=== PATIENT | female | born 1990 | race Hispanic/Latino ===

== ENCOUNTER 2023-11-29 09:13 | Outpatient (CLI) | payer BC | END 2023-11-29 09:14 | disposition home or self-care (01) | LOC: CSHULT 09:13 | PROVIDERS: ATTEND Advanced Practice Midwife | DX: O44.42 Low lying placenta NOS or without hemorrhage, second trimester (principal); Z3A.19 19 weeks gestation of pregnancy | CPT/HCPCS: 76805 ==

== ENCOUNTER 2024-02-18 18:51 | Day surgery (SDC) | payer BC ==
[2024-02-18 19:17] VITALS: BMI 41.0
[2024-02-18] MEDS ORDERED: hydrALAZINE 20 MG/ML VIAL SLOW IVP PRN (19:26)
[2024-02-18] MEDS ORDERED: Promethazine HCl 25 MG/ML VIAL IM PRN (19:54)
[2024-02-18] MEDS ORDERED: Ondansetron PF 4 MG/2 ML Vial IVP PRN (19:54)
[2024-02-18] MEDS ORDERED: Acetaminophen 500 MG TAB PO PRN (19:54)
[2024-02-18] MEDS ORDERED: Oxytocin 30 units/NS 500 ML 500 ML IV SCH (20:00)
[2024-02-18] MEDS ORDERED: Lactated Ringer's 1,000 ML IV SCH (20:00)
[2024-02-18] MEDS: Cyclobenzaprine 10 MG TAB PO SCH (20:42)
[2024-02-18] MEDS: Acetaminophen 500 MG TAB PO SCH (20:42)
[2024-02-18] MEDS: metroNIDAZOLE 500 MG TAB PO SCH (22:37)
[2024-02-19] MEDS ORDERED: metroNIDAZOLE 500 MG TAB PO SCH (09:00)
== END 2024-02-18 23:50 | disposition home or self-care (01) ==
LOC: CSHLD/OP 18:51
PROVIDERS: ATTEND Family Medicine
DX: O9A.213 Injury, poisoning and certain other consequences of external causes complicating pregnancy, third trimester (principal); S39.012A Strain of muscle, fascia and tendon of lower back, initial encounter; O47.03 False labor before 37 completed weeks of gestation, third trimester; O24.419 Gestational diabetes mellitus in pregnancy, unspecified control; Z79.899 Other long term (current) drug therapy; Z90.49 Acquired absence of other specified parts of digestive tract; Z3A.31 31 weeks gestation of pregnancy; W01.0XXA Fall on same level from slipping, tripping and stumbling without subsequent striking against object, initial encounter
CPT/HCPCS: 87480; 87510; 87660; 96360; 99284

== ENCOUNTER 2024-04-03 09:15 | Inpatient (IN) | payer BC ==
[2024-04-03 09:59] VITALS: BMI 40.9
[2024-04-03] MEDS ORDERED: HYDROcodone/Acetaminophen 5/325 mg Tablet PO PRN ×2 (10:31→18:02)
[2024-04-03] MEDS ORDERED: Diphenoxylate HCl/Atropine Tablet PO PRN (10:31)
[2024-04-03] MEDS ORDERED: Ondansetron PF 4 MG/2 ML Vial IVP PRN ×2 (10:31→18:02)
[2024-04-03] MEDS ORDERED: Tranexamic Acid 1,000 MG/10 ML VIAL IVP PRN (10:31)
[2024-04-03] MEDS ORDERED: Lidocaine 1% (PF) 30 ML VIAL SC PRN (10:31)
[2024-04-03] MEDS ORDERED: Acetaminophen 500 MG TAB PO PRN (10:31)
[2024-04-03] MEDS ORDERED: hydrALAZINE 20 MG/ML VIAL SLOW IVP PRN ×2 (10:31→18:02)
[2024-04-03] MEDS ORDERED: Promethazine HCl 25 MG/ML VIAL IM PRN ×2 (10:31→18:02)
[2024-04-03] MEDS ORDERED: Ibuprofen 800 MG TAB PO PRN (10:31)
[2024-04-03] MEDS ORDERED: Misoprostol 200 MCG TAB PR PRN (10:31)
[2024-04-03] MEDS ORDERED: fentaNYL 50 mcg/mL 1 mL Vial SLOW IVP PRN (10:31)
[2024-04-03] MEDS ORDERED: Methylergonovine 0.2 MG/ML VIAL IM PRN (10:31)
[2024-04-03] MEDS ORDERED: Carboprost 250 MCG/ML AMP IM PRN (10:31)
[2024-04-03] MEDS ORDERED: Lactated Ringer's 1,000 ML IV SCH (10:45)
[2024-04-03] MEDS ORDERED: Oxytocin 30 units/NS 500 ML 500 ML IV SCH ×3 (10:45→18:02)
[2024-04-03 11:03] LABS: Hematocrit 39.7 % (34.9-44.5); Hemoglobin 13.7 g/dL (12.0-15.5); Mean Corpuscular HGB CONC 34.5 g/dL (32.0-36.0); Mean Corpuscular Hemoglobin 34.1 pg (27.0-33.0); Mean Corpuscular Volume 98.8 fL (81.6-98.3); Mean Platelet Volume 10.7 fL (7.4-10.4); Platelet Count 290 10x3/uL (150-450); RBC Distribution Width 13.4 % (11.5-14.5); Red Blood Cell (RBC) Count 4.02 10x6/uL (3.90-5.03)
[2024-04-03 11:35] LABS: Syphilis Antibody Nonreactive (Nonreactive); Syphilis Antibody Index 0.05 S/CO (<1.00 Non-Reactive)
[2024-04-03 11:36] LABS: HBsAg Index 0.15 S/CO (0-0.99); Hep B Surf Ag - L&D Non-Reactive S/CO (NonReactive)
[2024-04-03] MEDS: Oxytocin 30 units/NS 500 ML 500 ML IV SCH (12:14)
[2024-04-03] MEDS ORDERED: Milk Of Magnesia 30 ML UDCUP PO PRN (18:02)
[2024-04-03] MEDS ORDERED: diphenhydrAMINE 25 MG CAP PO PRN (18:02)
[2024-04-03] MEDS ORDERED: Bisacodyl 10 MG SUPP PR PRN (18:02)
[2024-04-03] MEDS ORDERED: Boostrix 0.5 ML (Tdap) VIAL (>/=7 yrs of age) IM ONE (18:02)
[2024-04-03] MEDS: Ibuprofen 800 MG TAB PO SCH (21:38)
[2024-04-03] MEDS: Docusate 100 MG CAP PO SCH (21:38)
[2024-04-04] MEDS: Ferrous Sulfate 325 MG TAB PO SCH (08:01)
[2024-04-04] MEDS: Prenatal Vitamin 1 TAB PO SCH (08:17)
[2024-04-04 11:17] VITALS: BP 111/53; TEMP 97.6
== END 2024-04-04 16:45 | disposition home or self-care (01) | DRG 807 ==
LOC: CSHLD/OP 09:15 → CSHLD 10:28 → CSHPED 16:10
PROVIDERS: ADMIT Family Medicine; ATTEND Family Medicine
PROC: 10E0XZZ Delivery of Products of Conception, External Approach (ICD-10-PCS; principal; 2024-04-03)
PROC: 10907ZC Drainage of Amniotic Fluid, Therapeutic from Products of Conception, Via Natural or Artificial Opening (ICD-10-PCS; 2024-04-03)
DX: O24.420 Gestational diabetes mellitus in childbirth, diet controlled (principal); Z37.0 Single live birth; Z3A.37 37 weeks gestation of pregnancy
CPT/HCPCS: 36415; 85027; 86780; 86850; 86900; 86901; 87340; 99285; J2590